=== PATIENT | male | born 1980 | race Two or more races ===

== ENCOUNTER → 2020-07-17 | Outpatient (CLI) | payer OTHER ==
[2015-11-18 21:54] VITALS: BP 115/64
--- NOTE | 2020-07-17 17:22 | CARD ---
MR#: [id number] Date of Study: 07/17/2020 Ordering Physician: ALEXI BOATENG, Referring Physician: ALEXI BOATENG, Tech: Judy Zavala APPROVED REPORT EXAM: Two-dimensional and M-mode echocardiogram with Doppler and color Doppler. Other Information Quality : AverageHR: 70bpm INDICATION Palpitations 2D DIMENSIONS RVDd3.0 (2.9-3.5cm)Left Atrium(2D)3.6 (1.6-4.0cm) IVSd0.9 (0.7-1.1cm)Aortic Root(2D)3.1 (2.0-3.7cm) LVDd5.1 (3.9-5.9cm)LVOT Diameter2.0 (1.8-2.4cm) PWd1.0 (0.7-1.1cm)LVDs3.1 (2.5-4.0cm) FS (%) 39.9 %SV88.4 ml Aortic Valve AoV Peak Silver.112.0cm/sAoV VTI21.4cm AO Peak GR.5.0mmHgLVOT Peak Silver.99.0cm/s LVOT VTI 19.21cmAO Mean GR.3mmHg TARIK (VMAX)2.85av0EOX (VTI)2.86cm2 Mitral Valve MV E Rvnqkyny21.9cm/sMV DECEL [id number] MV A Ojymljrn22.6cm/sMV E Mean Gr.1mmHg MV [id number]/A Ratio1.1 MVA (PHT)5.46cm2 TDI E/Lateral E'5.5E/Medial E'7.3 Pulmonary Valve PV Peak Flnbkrzf87.3cm/sPV Peak Grad.4mmHg Pulmonary Vein S1 Kouwmfiq57.2cm/sD2 Avkyudqp16.8cm/s PVa [id number] LEFT VENTRICLE The left ventricle is normal size. There is normal left ventricular wall thickness. The left ventricu lar systolic function is normal and the ejection fraction is within normal range. The ejection fracti on is 55-60%. There is normal LV segmental wall motion. RIGHT VENTRICLE The right ventricle is normal size. The right ventricular systolic function is normal. ATRIA The left atrium size is normal. The right atrium size is normal. The interatrial septum is intact wit h no evidence for an atrial septal defect or patent foramen ovale as noted on 2-D or Doppler imaging. AORTIC VALVE The aortic valve is thickened but opens well. Doppler and Color Flow revealed no significant aortic r egurgitation. There is no significant aortic valvular stenosis. Calculated aortic valve area is 2.66 cm2 with maximum pressure gradient of 6 mmHg and mean pressure gradient of 3 mmHg. MITRAL VALVE The mitral valve is normal in structure and function. There is no evidence of mitral valve prolapse. There is no mitral valve stenosis. Doppler and Color Flow revealed no mitral valve regurgitation note d. TRICUSPID VALVE The tricuspid valve is normal in structure and function. Doppler and Color Flow revealed no tricuspid valve regurgitation noted. There is no tricuspid valve stenosis. PULMONIC VALVE The pulmonic valve is not well visualized. Doppler and Color Flow revealed no pulmonic valvular regur gitation. GREAT VESSELS The aortic root is normal in size. The ascending aorta is normal in size. The IVC is normal in size a nd collapses >50% with inspiration. PERICARDIAL EFFUSION There is no evidence of significant pericardial effusion. Critical Notification Critical Value: No <Conclusion> The left ventricle is normal size. The left ventricular systolic function is normal and the ejection fraction is within normal range. The ejection fraction is 55-60%. Doppler and Color Flow revealed no significant aortic regurgitation. There is no significant aortic valvular stenosis. Doppler and Color Flow revealed no mitral valve regurgitation noted. Doppler and Color Flow revealed no tricuspid valve regurgitation noted. Signed by : Alexi Boateng MD Electronically Approved : 07/17/2020 17:21:32
== END | disposition home or self-care (01) ==
LOC: ECHO 10:48
PROVIDERS: ATTEND Internal Medicine Cardiovascular Disease
DX: R00.2 Palpitations (principal)
CPT/HCPCS: 93306